=== PATIENT | male | born 1950 | race Asian ===

== ENCOUNTER 2024-04-20 02:21 | Observation (INO) | payer OTHER, SELFPAY ==
[2024-04-19 17:33] VITALS: BP 140/117
--- NOTE | 2024-04-19 17:37 | ED.GENMED ---
ED Provider Triage
<John De La Cruz PA-C - Last Filed: 04/19/24 17:38>
-
Patient seen by provider in Triage?: Seen in Triage
74-year-old male presents with 2 days worth of pain in the center of his chest that is made worse with swallowing and deep breathing. He also notes shortness of breath. He does not take any blood thinners. He denies any regurgitation of his food.
He denies any inability tolerate his own secretions. The pain does not radiate to the back. No associated back pain.
Patient is not hypoxic here in triage. He does look somewhat uncomfortable. With there are breath sounds in both lung spears.
Start with EKG chest x-ray and labs. Do not suspect esophageal foreign body as he is tolerating his secretions
History of Present Illness
<John De La Cruz PA-C - Last Filed: 04/19/24 17:38>
General
Chief Complaint: Chest Pain
Time Seen by Provider: 04/19/24 21:59
<Eddie Sánchez MD - Last Filed: 04/20/24 00:55>
General
Source: patient
Exam Limitations: none
Nursing documentation reviewed up to this point in time: agreed with
History of Present Illness
History of Present Illness:
74-year-old male with a past medical history of hypertension, hyperlipidemia, diabetes who presents to the emergency room for evaluation of chest pain. Patient reports onset of symptoms yesterday evening while at rest and they have been constant
since that time. He reports a sharp pain across his chest radiates right to left. He says it is worse when he takes a deep breath. No clear relieving factors noted. He also reports that this morning he noticed a bit of burning pain when he
swallows but he thinks this could be from heartburn. He has had mild cough but he says this is chronic as he is a smoker. He has not had any fevers or chills or URI symptoms. He has not had any abdominal pain, nausea, vomiting. He has not had
any swelling or pain in the legs. He denies similar symptoms in the past. He denies any known cardiac history. He denies any known history of DVT/PE. Denies any recent travel.
Review of Systems
<Eddie Sánchez MD - Last Filed: 04/20/24 00:55>
Review of Systems
All Other Systems: ROS reviewed and negative except as documented in HPI and ROS
Constitutional: Denies fever or chills
Respiratory: Reports cough and trouble breathing
Cardiac: Reports chest pain; Denies palpitations or syncope
ABD/GI: Denies abdominal pain, nausea, vomiting or diarrhea
: Denies flank pain
Musculoskeletal: Denies neck pain or back pain
Neurological: Denies dizzy or headache
Phy Exam
<Eddie Sánchez MD - Last Filed: 04/20/24 00:55>
Physical Exam
Physical Exam:
General: Awake, alert; no acute distress
Head: Normocephalic, atraumatic
Eyes: Conjunctiva normal, EOMI
Throat: Airway intact, handling secretions
Neck: Trachea midline, supple without meningismus
Lungs: Patient has bilateral scattered wheezing throughout all lung spears, occasional cough
Heart: Regular rate and rhythm, no murmurs, gallops, or rubs
Abd: Soft, non distended, nontender
Neuro: No gross deficits
Skin: no rash
Extremities: No edema in extremities, equal pulses in all extremities
Scores
<Eddie Sánchez MD - Last Filed: 04/20/24 00:55>
Heart Failure Risk
Heart Failure Risk Score: Not Applicable
Heart Score for Chest Pain Patients
STEMI patient?: Not applicable
Withdrawal Assessment of Alcohol
Withdrawal Assessment Completed?: Not applicable
Course
<John De La Cruz PA-C - Last Filed: 04/19/24 17:38>
Orders/Labs/Results
Orders:
Orders
04/19/24 17:28
EKG [Electrocardiogram (*1)] Urgent
Reason for Study: Chest Pain
EKG- Treatment ONCE
04/19/24 17:43
Complete Blood Count/With Diff Urgent
Comprehensive Metabolic Panel Urgent
Lipase Urgent
Troponin I Urgent
04/19/24 22:05
CT Chest Pe Study Urgent
Comment:
Reason For Exam: pleuritic chest pain, SOB
04/19/24 23:25
Ipratropium/Albuterol Sulfate [Duoneb] 3 ml INH R NOW STA
MethylPREDNISolone PF [Solu-Medrol Pf] 125 mg IV NOW STA
Abnormal Lab Results
04/19/24
17:43
WBC 11.3 H 10^3/uL
(4.8-10.8)
RBC 4.11 L 10^6/uL
(4.70-6.10)
Hct 37.0 L %
(39.0-52.0)
MCH 32.1 H pg
(27.0-31.0)
MPV 10.8 H fL
(7.4-10.4)
Abs Immat Gran (auto) 0.1 H 10^3/uL
(0-0.05)
Absolute Neuts (auto) 7.9 H 10^3/uL
(1.4-6.5)
Absolute Monos (auto) 0.8 H 10^3/uL
(0.1-0.6)
Lymphocytes % 19.0 L %
(20.5-51.1)
Chloride 97 L mmol/L
(98-107)
Glucose 119 H mg/dl
(70-99)
04/19/24 17:43
04/19/24 17:43
Vital Signs
Initial and Last Documented VS:
Initial Vital Signs
Temp Pulse Resp BP Pulse Ox
37.0 C 96 22 140/117 97
04/19/24 17:33 04/19/24 17:33 04/19/24 17:33 04/19/24 17:33 04/19/24 17:33
Last Documented Vital Signs
Temp Pulse Resp BP Pulse Ox
37.1 C 85 18 112/78 96
04/19/24 18:33 04/19/24 22:45 04/19/24 22:45 04/19/24 22:21 04/19/24 22:45
<Eddie Sánchez MD - Last Filed: 04/20/24 00:55>
Orders/Labs/Results
Orders:
Orders
04/19/24 17:28
EKG [Electrocardiogram (*1)] Urgent
Reason for Study: Chest Pain
EKG- Treatment ONCE
04/19/24 17:43
Complete Blood Count/With Diff Urgent
Comprehensive Metabolic Panel Urgent
Lipase Urgent
Troponin I Urgent
04/19/24 22:05
CT Chest Pe Study Urgent
Comment:
Reason For Exam: pleuritic chest pain, SOB
04/19/24 23:25
Ipratropium/Albuterol Sulfate [Duoneb] 3 ml INH R NOW STA
MethylPREDNISolone PF [Solu-Medrol Pf] 125 mg IV NOW STA
Abnormal Lab Results
04/19/24
17:43
WBC 11.3 H 10^3/uL
(4.8-10.8)
RBC 4.11 L 10^6/uL
(4.70-6.10)
Hct 37.0 L %
(39.0-52.0)
MCH 32.1 H pg
(27.0-31.0)
MPV 10.8 H fL
(7.4-10.4)
Abs Immat Gran (auto) 0.1 H 10^3/uL
(0-0.05)
Absolute Neuts (auto) 7.9 H 10^3/uL
(1.4-6.5)
Absolute Monos (auto) 0.8 H 10^3/uL
(0.1-0.6)
Lymphocytes % 19.0 L %
(20.5-51.1)
Chloride 97 L mmol/L
(98-107)
Glucose 119 H mg/dl
(70-99)
04/19/24 17:43
04/19/24 17:43
Vital Signs
Initial and Last Documented VS:
Initial Vital Signs
Temp Pulse Resp BP Pulse Ox
37.0 C 96 22 140/117 97
04/19/24 17:33 04/19/24 17:33 04/19/24 17:33 04/19/24 17:33 04/19/24 17:33
Last Documented Vital Signs
Temp Pulse Resp BP Pulse Ox
37.1 C 85 18 112/78 96
04/19/24 18:33 04/19/24 22:45 04/19/24 22:45 04/19/24 22:21 04/19/24 22:45
<Eddie Sánchez MD - Last Filed: 04/20/24 00:55>
MDM/Problems Addressed
Differential Diagnosis Includes:
PE, bronchitis, pneumothorax, pneumonia, pericarditis, GERD, costochondritis, ACS less likely clinically
MDM/Problems Addressed:
74-year-old male presents for evaluation of acute onset pleuritic chest pain that started yesterday evening and has been constant. Associate with mild shortness of breath he also has a chronic smoker's cough. Vitals and exam as above. Check labs
including a CBC and a CMP. Check troponin. Check CTA to rule out PE. Treat with steroids and DuoNeb. Reassess after the above.
Labs reviewed: CBC shows marginal leukocytosis, CMP no clinically significant abnormalities. Troponin undetectable and with consistent symptoms x 24 hours this is sufficient to rule out acute UT. Continue to monitor.
CTA negative for PE but does show findings consistent with bronchopneumonia/bronchitis. On clinical reassessment patient still has significant wheezing, he says very uncomfortable going home with his current symptoms. Will treat with additional
DuoNeb, cover with antibiotics and admit for continued treatment with nebs, steroids, antibiotics. Case discussed with hospitalist for admission. Patient is also complaining of heartburn once again, will trial GI cocktail.
Chronic conditions affecting care:
Smoker
Acute Exacerbation and/or Progression of Chronic Illness:
Acutely hypertensive
<Eddie Sánchez MD - Last Filed: 04/20/24 00:55>
*Radiology
Radiology exam reviewed: radiology read reviewed
*Pulse Oximetry
Patient hypoxic: no
*EKG
Interpreted by ED Provider?: Yes
Heart Rate: 84
Rate: normal
Rhythm: sinus
[place]: normal axis
Interval: normal interval
QRS Pattern: normal QRS
Ischemia: no ischemia
*Critical Care Note
Total Time (30-74mins, 75-104mins- exclusive of procedures): Not Applicable
Data Reviewed
Source: patient and spouse
<Eddie Sánchez MD - Last Filed: 04/20/24 00:55>
Patient Management
Escalation/DeEscalation of care consider admission/obs:
Offered admission�using shared decision making discharged
ED Attending Note
<John De La Cruz PA-C - Last Filed: 04/19/24 17:38>
-
Portions of this chart may have been created with voice recognition software.� Occasional wrong word or��sound alike� substitutions may have occurred due to the inherent limitations of voice recognition software.
Discharge Plan
Departure
Patient Disposition: Home (Routine Discharge)
Date of Disposition: 04/20/24
Time of Disposition: 00:43
Patient with high blood pressure during this ER visit?: No
Discharge Problem:
Bronchitis, Pneumonia
Referrals:
Nelson Guardado MD [Family Provider] - Follow up in 2-3 days
Interventions
Interventions:
*Risk Screen - Suicide Last Done: 04/19/24 17:33
*General Assessment Last Done: 04/19/24 17:33
*Neglect/Abuse Screening Last Done: 04/19/24 17:33
*ED COVID-19 Vaccine History Last Done: 04/19/24 17:33
KT-Evbjwx-Cvlnkbiyas Assessment Last Done: 04/19/24 22:24
ED- Pulmonary Assessment Last Done: 04/19/24 22:24
ED- Neurological Assessment Last Done: 04/19/24 22:24
ED- Cardiac Assessment Last Done: 04/19/24 22:24
Discharge Date and Time
Print Language: DANISH
[2024-04-19 17:50] LABS: % Basophils 0.4 % (0-2); % Eosinophils 2.4 % (0-6); % Immature Granulocytes 0.4 % (0-0.5); % Monocytes 7.4 % (1.7-9.3); % Neutrophils 70.4 % (42.2-75.2); Absolute Basophils 0.1 10^3/uL (0-0.2); Absolute Eosinophils 0.3 10^3/uL (0-0.7); Absolute Immature Granulocytes 0.1 10^3/uL (0-0.05); Absolute Lymphocytes 2.1 10^3/uL (1.2-3.4); Absolute Monocytes 0.8 10^3/uL (0.1-0.6); Absolute Neutrophils 7.9 10^3/uL (1.4-6.5); Hemoglobin 13.2 g/dL (13.0-18.0); Mean Corp Hgb Conc. 35.7 g/dL (33.0-37.0); Mean Corpuscular Hgb 32.1 pg (27.0-31.0); Mean Platelet Volume 10.8 fL (7.4-10.4); Nucleated Red Blood Cells % 0 % (-); Platelet Count 154 10^3/uL (130-400); Red Blood Cell Count 4.11 10^6/uL (4.70-6.10); Red Cell Dist. Width 12.8 % (11.5-14.5); White Blood Cell Count 11.3 10^3/uL (4.8-10.8)
[2024-04-19 18:15] LABS: ALT (SGPT) 34 U/L (0-50); AST (SGOT) 32 U/L (17-59); Albumin 4.4 g/dl (3.5-5.0); Alkaline Phosphatase 41 U/L (38-126); Blood Urea Nitrogen 17 mg/dl (9-20); Calcium 9.5 mg/dl (8.4-10.2); Carbon Dioxide 27 mmol/L (22-30); Chloride 97 mmol/L (98-107); Glucose 119 mg/dl (70-99); Lipase 194 U/L (23-300); Potassium 4.6 mmol/L (3.5-5.1); Sodium 138 mmol/L (135-145); Total Bilirubin 1.1 mg/dl (0.2-1.3); Total Protein 6.9 g/dl (6.3-8.2); Troponin I < 0.012 ng/ml; eGFR > 60.00
[2024-04-19 18:33] VITALS: BP 110/73
[2024-04-19 22:21] VITALS: BP 112/78
[2024-04-19 23:00] VITALS: BP 108/73
[2024-04-19] MEDS: DUONEB 3 ML INH (23:43)
[2024-04-19] MEDS: SOLU-MEDROL PF 125 MG IV (23:43)
[2024-04-19 23:50] VITALS: BP 111/98
[2024-04-20] VITALS (10 sets, daily range): BP systolic 91–117; BP diastolic 54–95; BMI 18.9
[2024-04-20] MEDS: MAALOX 50 PO (01:08)
[2024-04-20] MEDS: DUONEB 3 ML INH ×4 (01:08→23:29)
[2024-04-20] MEDS: ZITHROMAX INFUSION 250 IV (01:08)
[2024-04-20] MEDS: ROCEPHIN 1000 MG IV (01:08)
[2024-04-20] MEDS: NSS 1000 IV ×3 (01:09→16:06)
--- NOTE | 2024-04-20 02:08 | HPS.HSE ---
Family Physician
-
Family Physician: Nelson Guardado
Chief Complaint
-
Chest pain
History of Present Illness
This is a 74-year-old male with past medical history significant for GERD, qgm-vtemuja-bqpyvacvs diabetes, hypertension, BPH and hyperlipidemia who presents to the emergency department with approximately 2 days of chest pain.
Family and patient reported that he awoke 2 days ago with mild nonproductive cough and then developed chest pain that is worse with coughing. He reports that whenever he coughs he has pain in the substernal region that radiates across his chest.
It is not associated with exertional dyspnea. He denies any palpitations lightheadedness dizziness. He denies any fevers or chills. Family reported that he also complained of difficulty swallowing reporting burning pain with swallowing of liquids.
Patient denies any lower extremity swelling or calf tenderness. He denies any recent travel. Denies any known sick contacts. He is a chronic smoker that he was recently cutting down.
In the Emergency Department the patient was afebrile, blood pressure was 112/78 he was satting 90% on room air. He had leukocytosis to 11,000 otherwise CBC was unremarkable. Chemistries were unremarkable. He had a CT of the chest to rule out a PE
which showed a left lower lobe bronchopneumonia.
Medical History
Past Medical History
Past Medical History: Reports GERD, HTN, Hypercholesterolemia, NIDDM and Other
Additional Past Medical History:
BPH
Past Surgical History: Reports None
Social History
Tobacco: Smoker
Alcohol: Occasional
Drug: None
Personal:
Living: With Family
Employment: Retired
Family History
Family History: Not pertinent
Allergies / Home Medications
Allergies reflects when Allergies were last updated in [employer]
Home Medications with original date entered in [employer]
Allergy/Medication List:
Allergies
Allergy/AdvReac Type Severity Reaction Status Date / Time
No Known Allergies Allergy Unverified 04/19/24 17:38
Omeprazole 40 mg tablets, 40 mg p.o. daily
Glipizide/metformin 2.5/250 mg tablet, 1 tablet p.o. twice daily
Tamsulosin 0.4 mg tablet, 1 tablet p.o. twice daily
Losartan 25 mg tablet, 25 mg p.o. twice daily
Rosuvastatin 20 mg tablet, 20 mg p.o. every afternoon
Levothyroxine 100 mcg, 100 mcg p.o. daily
Dutasteride 0.5 mg tablet, 0.5 mg p.o. daily,
Trazodone 100 mg tablet, 100 mg p.o. at bedtime
Review of Systems
-
History Source: Patient and Family
Constitutional: Reports No Symptoms
EENT: Reports No Symptoms
Respiratory: Reports Cough
Cardiac: Reports Chest Pain
Abdomen/GI: Reports No Symptoms
: Reports No Symptoms
Musculoskeletal: Reports No Symptoms
Skin: Reports No Symptoms
Neurological: Reports No Symptoms
Endocrine: Reports No Symptoms
Hematologic/Lymphatic: Reports No Symptoms
Psych: Reports No Symptoms
Physical Exam
Vital Signs
Vital Signs
Temp Pulse Resp BP Pulse Ox
98.7 F 85 18 112/78 96
04/19/24 18:33 04/19/24 22:45 04/19/24 22:45 04/19/24 22:21 04/20/24 00:00
Physical Exam
General: Well Developed, Well Nourished and Appears in Distress
HEENT: NormoCephalic, Anicteric, Moist mucous membranes and Atraumatic
Respiratory: Clear
Cardiac: S1/S2 and Regular Rhythm
Breast: Deferred by me
GI: Soft, Non Tender, Non Distended and Normal Bowel Sounds
Rectal: Deferred by Provider
Genito-urinary: Deferred by me
Musculoskeletal: No Clubbing, No Cyanosis and No Edema
Skin: Warm, Dry, Rash and Jaundice
Neuro: AO x 3
Hematologic/Lymphatic: No Lymphadenopathy
Psych: Calm
Laboratory Results
-
04/19/24 17:43
04/19/24 17:43
Laboratory Results
Total Bilirubin 1.1 mg/dl (0.2-1.3) 04/19/24 17:43
AST 32 U/L (17-59) 04/19/24 17:43
ALT 34 U/L (0-50) 04/19/24 17:43
Alkaline Phosphatase 41 U/L (38-126) 04/19/24 17:43
Troponin I < 0.012 ng/ml 04/19/24 17:43
Lipase 194 U/L (23-300) 04/19/24 17:43
Data Reviewed
-
CT Scan: Report Reviewed by me
Lab Data: Labs Reviewed by me
Old Records: Reviewed
Impression/Plan
-
IMPRESSION:
74-year-old with history of diabetes hypertension BPH comes in with 2 days of pleuritic chest pain and a mild nonproductive cough, found to have left lower lobe bronchopneumonia on CT PE. There was no PE on the examination. Is currently
experiencing pleuritic pain which has improved. He also reports burning sensation when he swallows. Patient has history of GERD on twice daily PPI. Leukocytosis to 11,000.
PLAN:
1. Pneumonia - Atypical pneumonia/bronchopneumonia. No mass. Non-productive. No fever. Pleuritic chest pain.
- admit to meds/urg/obs
- azithromycin/ceftriaxone
- pain control
- nebs given smoker but no known copd, not wheezing
2. DM II
- glipizide 2.5 bid, hold metformin x 48 hours
- sliding scale insulin
3. HTN
- continue losartan
4. BPH
- continue tamsulosin and dutasteride
5. GERD
- pantoprazole bid
- maalox prn
- evalu swallowing in am
DVT PPX - lovenox sq
Code Status - Full Code
[2024-04-20] MEDS: DESYREL 100 MG PO ×2 (03:15→22:24)
[2024-04-20 07:00] LABS: Blood Urea Nitrogen 14 mg/dl (9-20); Calcium 8.5 mg/dl (8.4-10.2); Carbon Dioxide 24 mmol/L (22-30); Chloride 100 mmol/L (98-107); Glucose 288 mg/dl (70-99); Potassium 3.9 mmol/L (3.5-5.1); Sodium 137 mmol/L (135-145); eGFR > 60.00
[2024-04-20 07:12] LABS: Hemoglobin 11.7 g/dL (13.0-18.0); Mean Corp Hgb Conc. 34.4 g/dL (33.0-37.0); Mean Corpuscular Hgb 31.9 pg (27.0-31.0); Mean Corpuscular Volume 92.6 fL (80.0-94.0); Mean Platelet Volume 11.6 fL (7.4-10.4); Platelet Count 141 10^3/uL (130-400); Red Blood Cell Count 3.67 10^6/uL (4.70-6.10); Red Cell Dist. Width 12.7 % (11.5-14.5); White Blood Cell Count 7.2 10^3/uL (4.8-10.8)
[2024-04-20] MEDS: SYNTHROID 100 MCG PO (08:18)
[2024-04-20] MEDS: PROTONIX 40 MG PO ×2 (08:18→20:40)
[2024-04-20] MEDS: COZAAR 25 MG PO ×2 (08:18→20:41)
[2024-04-20] MEDS: FLOMAX 0.4 MG PO (08:18)
[2024-04-20 09:09] LABS: Glucose - Point of Care 238 mg/dl (70-99)
[2024-04-20] MEDS: GLUCOTROL 2.5 MG PO ×2 (09:15→17:13)
[2024-04-20] MEDS: NOVOLOG FLEXPEN-LOW RESISTANCE 2 UNITS SC (09:24)
--- NOTE | 2024-04-20 09:49 | W.PN.HOSP.TC ---
Today's Communication/Plan
-
See plan
Assessment / Plan
Assessment / Plan
Impression:
Presentation with chest pain
Bronchopneumonia, community-acquired, bibasilar infiltrates
Tobacco use disorder
Pulmonary nodule.
Other conditions:
Diabetes type 2.
Essential hypertension
BPH
GERD.
Plan:
Bronchopneumonia, community-acquired.
CT chest:
Negative for PE.
Bronchial wall thickening and loss of bronchial lumens within the lower lobes of both lungs, suggestive of bronchitis.
Stable respiratory status
Continue antibiotics: Ceftriaxone/azithromycin covering community-acquired/atypical pathogens
Exam with no bronchospasm
Status post single dose of Solu-Medrol in ED
Follow closely
Continue bronchodilators and mucolytics.
Pulmonary nodule.
4 mm nodule in the right lung apex. Bilateral apical pleuroparenchymal scarring. More focal area of reticular and groundglass opacity within the right apex, with craniocaudal dimension of 1.7 cm. Based on these findings, a follow-up CT of the chest
is recommended in 6-12 months.
Presentation with chest pain, atypical.
No prior history of CAD.
ECG with no ischemia.
Negative cardiac markers
Chest pain resolved with above-mentioned treatment.
DM II
- glipizide 2.5 bid, hold metformin x 48 hours
- sliding scale insulin
HTN
- continue losartan
BPH
- continue tamsulosin and dutasteride
GERD
- pantoprazole bid
- maalox prn
- evalu swallowing in am
DVT PPX - lovenox sq
Code Status - Full Code
Anticipated Discharge: 24 - 48 hours
Subjective/Interval History
-
Date of Service: April 20, 2024
Objective Data
-
Labs:
Laboratory Results
04/20/24
06:09
WBC 7.2
Hgb 11.7 L
Hct 34.0 L
Plt Count 141
Sodium 137
Potassium 3.9
Chloride 100
Carbon Dioxide 24
BUN 14
Creatinine 0.7
Glucose 288 H
Calcium 8.5
Vital Signs:
Vital Signs
Temp Pulse Resp BP Pulse Ox
97.8 F 90 20 103/80 98
04/20/24 08:15 04/20/24 08:18 04/20/24 08:15 04/20/24 08:18 04/20/24 08:15
Physical Exam
-
General: Well Developed and No Apparent Distress
HEENT: Normocephalic, Atraumatic and Moist Mucous Membranes
Respiratory: Clear to Auscultation
Cardiac: Regular Rhythm and S1/S2; Negative Murmur, Rub or Gallop
GI: Soft, Nontender, Nondistended and Normal Bowel Sounds; Negative Organomegaly
Rectal: Deferred by Provider
Musculoskeletal: No Clubbing, No Cyanosis and No Edema
Skin: Negative Rash
Neuro: Nonfocal/Grossly Intact
[2024-04-20] MEDS: MUCINEX 600 MG PO ×2 (11:46→20:40)
[2024-04-20 13:29] LABS: Glucose - Point of Care 167 mg/dl (70-99)
[2024-04-20] MEDS: NOVOLOG FLEXPEN-LOW RESISTANCE 1 UNITS SC (13:37)
--- NOTE | 2024-04-20 15:00 | PTCARENOTE ---
Received pt from ER.Pt awake,alert and oriented x3. Pt has no c/o pain at this time. Pt feeling short of breath and persistent harsh cough. Resp into give neb treatment and cough syrup given with improvement. Pt VSS 98% on RA. pt oriented to room,
call justin within reach, plan of care continues.
[2024-04-20] MEDS: ROBITUSSIN DM 5 ML PO (15:05)
[2024-04-20 16:09] LABS: COVID-19 Antigen Negative (Negative)
[2024-04-20 16:26] LABS: Glucose - Point of Care 82 mg/dl (70-99)
[2024-04-20] MEDS: NOVOLOG FLEXPEN-LOW RESISTANCE SC (16:27)
[2024-04-20] MEDS: CRESTOR 20 MG PO (17:13)
[2024-04-20] MEDS: LOVENOX 40 MG SC (17:14)
[2024-04-20] MEDS: ROBITUSSIN DM 10 ML PO (19:21)
[2024-04-20 21:52] LABS: Glucose - Point of Care 111 mg/dl (70-99)
[2024-04-21] MEDS: ROCEPHIN 1000 MG IV (00:46)
[2024-04-21] MEDS: STERILE WATER FOR INJECTION 10 ML IV (00:46)
[2024-04-21] MEDS: ZITHROMAX INFUSION 250 IV (00:51)
[2024-04-21] MEDS: NSS 1000 IV (00:52)
[2024-04-21 03:00] VITALS: BP 97/55
--- NOTE | 2024-04-21 04:33 | DOWNTIME ---
There was a [employer] Client Manager Net Downtime on 04/21/2024 from 0100 to 04/21/2024 at 0355. Downtime documentation of patient's care, including medication administrations, has been reconciled in the electronic record per guidelines. Refer to the
patient's paper chart under the miscellaneous tab to see printed paper medication records and downtime forms.
[2024-04-21] MEDS: SYNTHROID 100 MCG PO (06:27)
[2024-04-21] MEDS: ROBITUSSIN DM 10 ML PO ×2 (06:30→11:37)
[2024-04-21 07:26] LABS: Glucose - Point of Care 224 mg/dl (70-99)
[2024-04-21 07:35] VITALS: BP 116/71
[2024-04-21] MEDS: NOVOLOG FLEXPEN-LOW RESISTANCE 2 UNITS SC (08:11)
[2024-04-21] MEDS: FLOMAX 0.4 MG PO (08:11)
[2024-04-21] MEDS: PROTONIX 40 MG PO (08:12)
[2024-04-21] MEDS: MUCINEX 600 MG PO (08:12)
[2024-04-21] MEDS: COZAAR 25 MG PO (08:12)
[2024-04-21] MEDS: GLUCOTROL 2.5 MG PO (08:13)
[2024-04-21 11:58] LABS: Glucose - Point of Care 142 mg/dl (70-99)
[2024-04-21] MEDS: NOVOLOG FLEXPEN-LOW RESISTANCE SC (11:58)
[2024-04-21] MEDS: DUONEB 3 ML INH (12:25)
[2024-04-21 14:19] VITALS: BMI 18.9
[2024-04-21 15:15] VITALS: BP 105/65
--- NOTE | 2024-04-21 15:28 | W.DS.TRANS ---
DC Summary - Data Entry Coordinator
-
Discharge Instructions:
Discharge Diagnosis/Procedures Impression:
Presentation with chest pain
Bronchopneumonia, community-acquired, bibasilar
infiltrates
Tobacco use disorder
Pulmonary nodule.
Other conditions:
Diabetes type 2.
Essential hypertension
BPH
GERD.
Diet Regular
Others Tests CT chest follow-up with 4 mm nodule at the right
apex visit in the next 6 to 12 months.
Instructions:
Stand-Alone Forms:
Changes to Home Medications: Yes
Discharge Medications:
DC Medications w/original date entered in [employer]
amoxicillin 500 mg capsule 500 mg PO TID 04/20/24
dutasteride 0.5 mg capsule 0.5 mg PO DAILY 04/20/24
glipizide 2.5 mg-metformin 250 mg tablet 1 tab PO BID 04/20/24
losartan 25 mg tablet 25 mg PO DAILY 04/20/24
omeprazole 40 mg capsule,delayed release 40 mg PO BID 04/20/24
rosuvastatin 20 mg tablet (Crestor) 20 mg PO DAILY 04/20/24
tamsulosin 0.4 mg capsule (Flomax) 0.4 mg PO DAILY 04/20/24
albuterol sulfate 90 mcg/actuation breath activated powder inhaler 2 inh inhalation Q6H PRN shortness of breath or wheezing #1 ea 04/21/24
azithromycin 500 mg tablet (Zithromax) 500 mg PO DAILY 3 days #3 tabs 04/21/24
budesonide 90 mcg/actuation breath activated powder inhaler (Pulmicort Flexhaler) 2 inh inhalation BID #1 ea 04/21/24
guaifenesin 600 mg tablet, extended release 12 hr (Mucinex) 600 mg PO Q12H PRN Cough #30 tabs 04/21/24
levothyroxine 100 mcg tablet 100 mcg PO DAILY @ 0600 #30 tabs 04/21/24
Home Medication Changes
Inhaled steroids and bronchodilators
Antibiotics to complete course of treatment for bronchopneumonia.
Pending Results: No
--- NOTE | 2024-04-21 16:05 | CM ---
Alert awake oriented patient who lives with his Franck who lives in a 1 story home with 1 step to enter and bed and bathroom on first floor.. He is independent in all activities of daily living.He was offered VN he declined need.GRIJALVA letter
given explained and copy signed on chart.
No VN hx / No SNF history
Pharmacy [facility]
PCP DR Monique Guardado
PLAN Home Declined VN
== END 2024-04-21 16:31 | disposition home or self-care (01) ==
LOC: 4 EAST ACU 02:21
PROVIDERS: Physician Assistant; ADMITTING PHYSICIAN Internal Medicine; ATTENDING PHYSICIAN Internal Medicine; EMERGENCY PHYSICIAN Emergency Medicine; FAMILY PHYSICIAN Family Medicine
DX: J18.0 Bronchopneumonia, unspecified organism (principal); R07.9 Chest pain, unspecified; R91.1 Solitary pulmonary nodule; R05.3 Chronic cough; R06.02 Shortness of breath; R07.81 Pleurodynia; R79.89 Other specified abnormal findings of blood chemistry; E78.00 Pure hypercholesterolemia, unspecified; I10 Essential (primary) hypertension; E11.9 Type 2 diabetes mellitus without complications; F17.200 Nicotine dependence, unspecified, uncomplicated; K44.9 Diaphragmatic hernia without obstruction or gangrene; E03.9 Hypothyroidism, unspecified; N40.0 Benign prostatic hyperplasia without lower urinary tract symptoms; K21.9 Gastro-esophageal reflux disease without esophagitis; Z79.890 Hormone replacement therapy; Z79.84 Long term (current) use of oral hypoglycemic drugs; Z79.891 Long term (current) use of opiate analgesic; Z11.52 Encounter for screening for COVID-19
CPT/HCPCS: 71275; 80048; 80053; 82962; 83690; 84484; 85025; 85027; 87449; 87502; 87811; 93005; 94640; 96365; 96375; 99285; G0378; Q9967